=== PATIENT | female | born 1970 | race Caucasian/White ===

== ENCOUNTER 2017-03-25 07:07 | Day surgery (SDC) | payer BC ==
[~2017-03-25 07:07] MED LIST: Lactated Ringers 1,000 ML IV SCH; Lidocaine 1%/Sod Bicarbonate in NS 8.4% 1 ML Syringe IV PRN; Sodium Chloride 0.9% 10 ML Syringe FLUSH PRN
[2017-03-25] MEDS ORDERED: Propofol 200 MG/20 ML SDV ONE (07:11)
[2017-03-25] MEDS ORDERED: fentaNYL 100 MCG/2 ML SDV ONE (07:12)
--- NOTE | 2017-03-25 07:30 | PCM.PREANE ---
Preanesthetic Assessment - Procedure Proposed Procedure: Diagnostic EGD - Anesthesia/Transfusion/Family Hx Anesthesia History: Prior Anesthesia Without Reaction Family History of Anesthesia Reaction: No Transfusion History: No Prior Transfusion(s) Intubation History: Unknown - Review of Systems General: No Symptoms Pulmonary: No Symptoms Cardiovascular: Other (HTN) Gastrointestinal: Other (GERD) Neurological: No Symptoms Other: Reports: Diabetes - Physical Assessment NPO Status Date: 03/24/17 NPO Status Time: 20:00 Pulse: 83 O2 Sat by Pulse Oximetry: 97 Respiratory Rate: 16 Blood Pressure: 144/93 Temperature: 36.4 C Height: 1.68 m Weight: 119.295 kg ASA Class: 2 Mental Status: Alert & Oriented x3 Airway Class: Mallampati = 2 Dentition: Reports: Normal Dentition Thyro-Mental Finger Breadths: 3 Mouth Opening Finger Breadths: 3 ROM/Head Extension: Full Lungs: Clear to Auscultation, Normal Respiratory Effort Cardiovascular: Regular Rate, Regular Rhythm, Murmurs (patient stated she had been told this before ) - Allergies Allergies/Adverse Reactions: Allergies Allergy/AdvReac Type Severity Reaction Status Date / Time No Known Allergies Allergy Verified 09/26/15 11:05 - Blood Blood Available: No Product(s) Available: None - Anesthesia Plan Pre-Op Medication Ordered: None Beta Braulio: Labetalol Med Last Dose Date: 03/25/17 Med Last Dose Time: 06:00 - Acknowledgements Anesthesia Type Planned: MAC Pt an Appropriate Candidate for the Planned Anesthesia: Yes Alternatives and Risks of Anesthesia Discussed w Pt/Guardian: Yes Pt/Guardian Understands and Agrees with Anesthesia Plan: Yes PreAnesthesia Questionnaire Cardiovascular History: Reports: Hypertension Gastrointestinal History: Reports: GERD GEOSPATIAL DEVELOPER History: Reports: Dysfunctional Uterine Bleeding, Musculoskeletal History: Reports: Gout Neurological History: Reports: Neuropathy, Diabetic, Other (See Below) Other Neuro History: numb left hip Psychiatric History: Reports: Anxiety Endocrine/Metabolic History: Reports: Diabetes, Type II Oncologic (Cancer) History: Reports: Basal Cell Carcinoma Dermatologic History: Reports: Other (See Below) Other Dermatologic History: skin cancer removed-left arm - Past Surgical History Female Surgical History: Reports: Section Musculoskeletal Surgical History: Reports: Arthroscopic Knee, Carpal Tunnel, Joint Replacement Other Musculoskeletal Surgeries/Procedures:: left knee surgery , bilateral knee replacements - SUBSTANCE USE Smoking Status *Q: Never Smoker Tobacco Use Within Last Twelve Months: No Second Hand Smoke Exposure: No Days Per Week of Alcohol Use: 1 Number of Drinks Per Day: 4 Total Drinks Per Week: 4 Recreational Drug Use History: No - HOME MEDS Home Medications: Home Meds Labetalol [Normodyne] 200 mg PO DAILY 06/16/15 [History] Multivitamin [Multivitamins] 1 tab PO DAILY 06/16/15 [History] Cyclobenzaprine [Flexeril] 10 mg PO TID PRN #40 tablet 09/30/15 [Rx] Sennosides [Senna] 8.6 mg PO BID PRN #0 tablet 09/30/15 [Rx] diphenhydrAMINE [Benadryl] 25 mg PO Q4H PRN #0 tablet 09/30/15 [Rx] oxyCODONE 5 mg PO Q6H PRN #30 tablet 09/30/15 [Rx] LORazepam [Ativan] 1 mg PO Q8H PRN 03/22/17 [History] Meloxicam [Mobic] 15 mg PO ASDIRECTED 03/22/17 [History] Pantoprazole Sodium [Protonix] 20 mg PO DAILY 03/22/17 [History] Tresiba 18 units SUBCUT DAILY 03/22/17 [History] Zolpidem [Ambien] 10 mg PO ASDIRECTED PRN 03/22/17 [History] atorvaSTATin [Lipitor] 10 mg PO DAILY 03/22/17 [History] - CURRENT (IN HOUSE) MEDS Current Meds: Current Medications Lactated Ringer's (Ringers, Lactated) 1,000 mls @ 125 mls/hr IV ASDIRECTED AMBROSIO Lidocaine/Sodium Bicarbonate (Buffered Lidocaine 1% In Ns 8.4%) 0.25 ml IV ONETIME PRN PRN Reason: Prior to IV Start Sodium Chloride (Saline Flush) 10 ml FLUSH ASDIRECTED PRN PRN Reason: Keep Vein Open Discontinued Medications Fentanyl (Sublimaze) Confirm Administered Dose 100 mcg .ROUTE .STK-MED ONE Stop: 03/25/17 07:13 Propofol (Diprivan 20 Ml) Confirm Administered Dose 200 mg .ROUTE .STK-MED ONE Stop: 03/25/17 07:12
--- NOTE | 2017-03-25 08:28 | PCM.OPNOTE ---
- General Post-Op/Procedure Note Date of Surgery/Procedure: 03/25/17 Operative Procedure(s): EGD with bx Pre Op Diagnosis: GERD dysphagia Post-Op Diagnosis: Same Anesthesia Technique: MAC Primary Surgeon: Igor Barbour EBL in mLs: 0 Complications: None Condition: Good
--- NOTE | 2017-03-25 08:30 | PCM48HPAN ---
Post Anesthesia Note - EVALUATION WITHIN 48HRS OF ANESTHETIC Vital Signs in Normal Range: Yes Patient Participated in Evaluation: Yes Respiratory Function Stable: Yes Airway Patent: Yes Cardiovascular Function Stable: Yes Hydration Status Stable: Yes Pain Control Satisfactory: Yes Nausea and Vomiting Control Satisfactory: Yes Mental Status Recovered: Yes
[2017-03-25 08:33] VITALS: BP 108/66
--- NOTE | 2017-03-25 12:30 | OR ---
DATE OF OPERATION: 03/25/2017 SURGEON: Igor Barbour MD PREOPERATIVE DIAGNOSIS: Dysphagia and gastroesophageal reflux disease. POSTOPERATIVE DIAGNOSIS: Dysphagia and gastroesophageal reflux disease. OPERATION PERFORMED: Esophagogastroduodenoscopy with biopsy. FINDINGS: Mild inflammation at the antrum, of which biopsies were taken. Hiatus was incompetent with a large hiatal hernia with GE junction located at 35 cm. Within the hiatal hernia pouch, at the projecting edge of the diaphragm, could see some superficial erosions. The GE junction itself did not show any erosions or changes. Z-line was sharp. Second portion of the duodenum, duodenal bulb, pyloric channel, body, cardia and fundus of stomach were unremarkable outside of the hiatal hernia. The balance of the esophagus did not show any acute pathology. ANESTHESIA: Done under IV sedation. RECOMMENDATION: If the patient's symptoms cannot be controlled with medical management, would recommend referral to GI for consideration of a Weston fundoplication. DESCRIPTION OF PROCEDURE: The patient was taken to the endoscopy room, placed in a supine position, connected to monitoring equipment, given IV sedation, and placed in the left lateral position. A bite block was inserted and video Olympus gastroscope was placed in the posterior oropharynx, under direct vision, threaded past the cricopharyngeus, down the esophagus, and into the stomach. The stomach was insufflated. The scope was passed through the pylorus to the second portion of the duodenum. Second portion of the duodenum, duodenal bulb, and pyloric channel were unremarkable. Antrum showed a little redness, and this was biopsied. Body, cardia, and fundus of the stomach were unremarkable. J- maneuver showed an incompetent hiatus and a large hiatal hernia. Scope was withdrawn to the hiatal hernia showing some superficial erosions at the indentation of the diaphragm. GE junction was located at 35 cm, did not show any acute pathology, just thickening, and no narrowing. Four-quadrant biopsies were performed. Rest of the esophagus viewed as the scope withdrawn was normal. The patient tolerated the procedure and sent to recovery room in a stable condition, to be followed up with Margarita Morgan. ESTIMATED BLOOD LOSS: MMODAL /[id number]
== END 2017-03-25 08:55 | disposition home or self-care (01) ==
LOC: JD.SDS 07:07
PROVIDERS: ATTEND Surgery
DX: K25.7 Chronic gastric ulcer without hemorrhage or perforation (principal); K21.0 Gastro-esophageal reflux disease with esophagitis; K44.9 Diaphragmatic hernia without obstruction or gangrene; I10 Essential (primary) hypertension; E11.9 Type 2 diabetes mellitus without complications; Z68.41 Body mass index [BMI] 40.0-44.9, adult; Z98.890 Other specified postprocedural states; Z79.899 Other long term (current) drug therapy; Z79.4 Long term (current) use of insulin
CPT/HCPCS: 43239; J3010; J7120; 00740; J2704

== ENCOUNTER 2017-12-09 19:49 | Emergency (ER) | payer BC ==
[2017-12-09] MEDS ORDERED: Lidocaine 1% 20 ML MDV INJECT ONE (20:06)
[2017-12-09] MEDS ORDERED: Lidocaine 1% 50 ML MDV ONE (20:09)
[2017-12-09] MEDS ORDERED: Lidocaine 1% 50 ML MDV INJECT ONE (20:12)
--- NOTE | 2017-12-09 20:56 | EDM.PDOC ---
ED HPI GENERAL MEDICAL PROBLEM - General Chief Complaint: Upper Extremity Injury/Pain Stated Complaint: PIECES OF WOOD IN LEFT HAND Time Seen by Provider: 12/09/17 20:02 Source of Information: Reports: Patient - History of Present Illness Onset: Today - Related Data Allergies Allergy/AdvReac Type Severity Reaction Status Date / Time No Known Allergies Allergy Verified 12/09/17 19:58 Home Meds: Home Meds Labetalol [Normodyne] 200 mg PO DAILY 06/16/15 [History] Tresiba 10 units SUBCUT DAILY 03/22/17 [History] Zolpidem [Ambien] 10 mg PO ASDIRECTED PRN 03/22/17 [History] Past Medical History Cardiovascular History: Reports: Hypertension Respiratory History: Reports: COPD, Other (See Below) Other Respiratory History: Stage 2 lung disease Gastrointestinal History: Reports: GERD 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: Dysfunctional Uterine Bleeding, Musculoskeletal History: Reports: Gout Neurological History: Reports: Neuropathy, Diabetic, Other (See Below) Other Neuro History: numb left hip Psychiatric History: Reports: Anxiety Endocrine/Metabolic History: Reports: Diabetes, Type II Oncologic (Cancer) History: Reports: Basal Cell Carcinoma Dermatologic History: Reports: Other (See Below) Other Dermatologic History: skin cancer removed-left arm - Past Surgical History Female Surgical History: Reports: Section Musculoskeletal Surgical History: Reports: Arthroscopic Knee, Carpal Tunnel, Joint Replacement Other Musculoskeletal Surgeries/Procedures:: left knee surgery , bilateral knee replacements Social & Family History - Family History HEENT: Reports: Cataract Cardiac: Reports: Hypertension, PR Respiratory: Reports: COPD GI: Reports: Other (See Below) Other GI Family History: ulcerative colitis : Reports: None Musculoskeletal: Reports: Gout, Osteoarthritis Neurological: Reports: Neuropathy, Diabetic Endocrine/Metabolic: Reports: Diabetes, type II, Obesity/MBI 30+ Hematologic: Reports: None Immunologic: Reports: None Dermatologic: Reports: None Oncologic: Reports: Lung - Tobacco Use Smoking Status *Q: Never Smoker - Caffeine Use Caffeine Use: Reports: Coffee - Alcohol Use Days Per Week of Alcohol Use: 5 Number of Drinks Per Day: 1 Total Drinks Per Week: 5 - Recreational Drug Use Recreational Drug Use: No - Living Situation & Occupation Living situation: Reports: Single, with Family Occupation: Employed Review of Systems - Review of Systems Review Of Systems: See Below ED EXAM, GENERAL - Physical Exam Exam: See Below Course - Vital Signs Last Recorded V/S: Last Vital Signs Temp 36.4 C 12/09/17 20:00 Pulse 79 12/09/17 20:00 Resp 18 12/09/17 20:00 BP 140/108 H 12/09/17 20:00 Pulse Ox 97 12/09/17 20:00 - Orders/Labs/Meds Meds: Medications Discontinued Medications Generic Name Dose Route Start Last Admin Trade Name Irene PRN Reason Stop Dose Admin Lidocaine HCl Confirm 12/09/17 20:09 12/09/17 20:13 Xylocaine 1% Administered 12/09/17 20:10 Not Given Dose 50 ml .ROUTE .STK-MED ONE Lidocaine HCl 50 ml 12/09/17 20:12 12/09/17 20:13 Xylocaine 1% INJECT 12/09/17 20:13 50 ml ONETIME ONE Administration Departure - Departure Time of Disposition: 20:53 Disposition: Home, Self-Care 01 Condition: Good Clinical Impression: Foreign body (FB) in soft tissue - Discharge Information *PRESCRIPTION DRUG MONITORING PROGRAM REVIEWED*: Not Applicable *COPY OF PRESCRIPTION DRUG MONITORING REPORT IN PATIENT INDER: Not Applicable Referrals: Francisca Childers NP [Primary Care Provider] - Additional Instructions: Remove dressing tomorrow. Keep clean and dry. Return or call if concerns for infection arise, as we discussed. Suture removal 5-7 days
[2017-12-09 21:15] VITALS: BP 142/98
--- NOTE | 2017-12-10 04:02 | ER ---
REASON FOR EMERGENCY ROOM VISIT: A small laceration and foreign body (splinter), left hand. HISTORY: This is a 47-year-old type 2 diabetic, who was demolishing an old dog house with her today. They were basically smashing it and taking the old wood and tossing it into a pile. She jammed the lateral aspect of her left hand into a jagged end of an old splintered piece of wood and thinks that she suffered a small superficial laceration, but felt it feels that there are definitely 1 or 2 splinters in this area. Her last tetanus booster was 4 to 5 years ago. She is confident it is certainly within the last 5 years. This happened just a few hours ago this afternoon. PAST MEDICAL HISTORY: See electronic medical record. ALLERGIES: None to medications. CURRENT MEDICATIONS: Reviewed. See EMR. PHYSICAL EXAMINATION: SKIN: She has a small 5 mm superficial laceration. It does get into the subcutaneous tissue on the lateral aspect of her left hand. It is bleeding very minimally. One can see that there is an end of a splinter sticking out of this and another one that seems to be buried quite deep into the soft tissue proximally. The area was extremely tender. Therefore, I felt I needed to use local anesthesia. FURTHER EMERGENCY ROOM COURSE: Her hand was soaked for approximately 15 to 20 minutes in Hibiclens and warm water and some Betadine was used to prep the area. Approximately 4 mL of 1% Xylocaine without epinephrine was used to anesthetize the subcutaneous tissue around this area, so I could probe and get these splinters out. I had to go fairly deep into the subcutaneous tissue. Once adequate local anesthesia was achieved, then I used a mosquito hemostat to grasp hold of a fairly thick splinter that was approximately 1 to 2 mm in diameter and about 3 cm in length. I had to pull this out and this was stuck in there fairly snugly. It was all within the subcutaneous tissue. It did not head towards the joint capsule itself. The location of this was located along the medial aspect of the left hand just proximal to the MCP joint of the 5th finger. A second splinter which ran in a 45-degree angle to the first was retrieved in the same way and this one was smaller in diameter and measured approximately 1.5 to 2 cm in length. These were removed intact. I probed around. I did get two other very small splinters out of the area with the mosquito hemostat. I again carefully looked and did not see any evidence of any additional splinters. In doing this, I did stir up a fair amount of venous bleeding, and since there was already a laceration approximately 5 to 6 mm that went into the subcutaneous tissue and the laceration itself was clean, I went ahead and placed one simple 4-0 Ethilon suture to approximate the skin edges and that stopped the oozing. Antibiotic ointment was applied over this as well as a gauze and a Kerlix wrap. She was instructed to keep the dressing on overnight, and in the morning, she can remove it, and she can wash it with soap and water or shower as long she keeps it dry, applies a Band-Aid over it until she is seen again in the clinic to have the suture removed. I described to her symptoms and signs of infection including purulence, increasing redness, fever, increasing pain, and increasing swelling. She understands this, and she will give us a call or see her provider if any of these symptoms begin to arise. I explained why I do not think antibiotics are indicated under these circumstances, and she understands. All questions were answered. JERRY /[id number]
== END 2017-12-09 21:08 | disposition home or self-care (01) ==
LOC: JD.ED 19:49
DX: S61.422A Laceration with foreign body of left hand, initial encounter (principal); I10 Essential (primary) hypertension; W45.8XXA Other foreign body or object entering through skin, initial encounter; Z79.899 Other long term (current) drug therapy
CPT/HCPCS: 10120; 12041; 99283; 99283-25